=== PATIENT | male | born 2000 | race Caucasian/White ===

== ENCOUNTER 2023-04-07 18:02 | Inpatient (IN) | payer MEDICAID ==
[2023-04-07] VITALS (9 sets, daily range): BP systolic 68–140; BP diastolic 36–76; PULSE 103–112; RESP 18–24; TEMP 97–98.8; O2SAT 81–100
[~2023-04-07] VITALS: Ht 167.6 cm; Wt 84.8 kg
[2023-04-07] MEDS ORDERED: INTUBATION KIT MC ONE (18:07)
[2023-04-07] MEDS ORDERED: PROPOFOL 1000 MG/100 ML PREMIX 100 ML IV ONE ×2 (18:19→18:20)
[2023-04-07 18:39] LABS: BASOPHILS % (AUTO) 0.2 % (0.0-2.0); EOSINOPHILS % (AUTO) 0.2 % (0.0-4.0); HEMATOCRIT 46.5 % (36-52); HEMOGLOBIN 15.5 g/dL (12.0-18.0); LYMPHOCYTES # (AUTO) 1.4 K/uL (2.0-11.5); LYMPHOCYTES % (AUTO) 16.4 % (20.5-51.1); MEAN CORPUSCULAR HEMOGLOBIN 29 pg (27-31); MEAN CORPUSCULAR HGB CONC 33 g/dL (33-37); MEAN CORPUSCULAR VOLUME 87.2 fL (80-94); MONOCYTES # (AUTO) 0.6 K/uL (0.8-1.0); MONOCYTES % (AUTO) 7.3 % (1.7-9.3); NEUTROPHILS # (AUTO) 6.3 K/uL (1.8-7.7); NEUTROPHILS % (AUTO) 75.9 % (42.2-75.2); PLATELET COUNT (AUTO) 323 K/uL (140-450); RED BLOOD CELL COUNT(AUTO) 5.33 MIL/uL (4.20-6.10); RED CELL DISTRIBUTION WIDTH 14.7 % (11.6-13.7); WHITE BLOOD COUNT (AUTO) 8.2 K/uL (4.8-10.8)
[2023-04-07] MEDS ORDERED: ETOMIDATE 20 MG/10 ML VIAL IVP ONE (18:40)
[2023-04-07] MEDS ORDERED: ROCURONIUM 50 MG/5 ML VIAL IV ONE (18:40)
[2023-04-07 18:50] LABS: APPEARANCE,URINE CLEAR (CLEAR); BILIRUBIN,URINE NEGATIVE (NEGATIVE); BLOOD, URINE 2+ (NEGATIVE); COLOR,URINE YELLOW (YELLOW); LEUKOCYTE ESTERASE ,URINE NEGATIVE (NEGATIVE); NITRITE, URINE NEGATIVE (NEGATIVE); PH,URINE 5.5 (5.0-9.0); PROTEIN,URINE 2+ (NEGATIVE); UGLUCOSE 1+ (NEGATIVE); UROBILINOGEN,URINE 0.2 EU/dL (0.2 - 1)
[2023-04-07 19:00] LABS: INR 1.06 (0.8-1.2); PARTIAL THROMBOPLASTIN TIME 25.1 secs (22-35.6); PROTHROMBIN TIME 11.1 secs (10.8-13.4)
[2023-04-07 19:02] LABS: BACTERIA,URINE None Seen /HPF (None Seen); MUCUS,URINE 1+ /LPF (None Seen); RBC,URINE 0-5 /HPF (0-5); SQUAMOUS EPITHELIAL CELL,UR 4-10 (MOD) /LPF (0-3 (FEW)); TRICHOMONAS,URINE None Seen /HPF (None Seen); WBC,URINE 0-5 /HPF (0-5); YEAST,URINE None Seen /HPF (None Seen)
[2023-04-07] MEDS ORDERED: AMPICILLIN/SULBACTAM 3 GM in NACL 0.9% 100 ML IV ONE (19:10)
[2023-04-07] MEDS ORDERED: NACL 0.9% 3,000 ML IV ONE (19:10)
[2023-04-07] MEDS ORDERED: AMPICILLIN/SULBACTAM 3 GM VIAL ONE (19:12)
[2023-04-07 19:13] LABS: AMPHETAMINE, URINE NEGATIVE ng/ml (NEG <=1000); BARBITURATE, URINE NEGATIVE ng/ml (NEG <=200); BENZODIAZEPINE, URINE POSITIVE ng/mL (NEG <=200); CANNABINOID, URINE NEGATIVE ng/mL (NEG <=50); COCAINE, URINE POSITIVE ng/mL (NEG <=300); OPIATE, URINE NEGATIVE ng/mL (NEG <=2000); PHENCYCLIDINE SCREEN,URINE NEGATIVE ng/mL (NEG <=25)
[2023-04-07] MEDS ORDERED: MIDAZOLAM 5 MG/5 ML VIAL IV ONE (19:30)
[2023-04-07 19:34] LABS: ALANINE AMINOTRANSFERASE 82 U/L (12-78); ALBUMIN 3.6 g/dL (3.4-5.0); ALKALINE PHOSPHATASE 108 U/L (50-136); ASPARTATE AMINOTRANSFERASE 90 U/L (15-37); THYROID STIMULATING HORMONE 0.43 uIU/mL (0.34-3.74); TOTAL BILIRUBIN 0.5 mg/dL (0.0-1.0); TOTAL PROTEIN, SERUM 8.6 g/dL (6.4-8.2)
[2023-04-07 19:45] LABS: ANION GAP 17.4 (8-16); CALCIUM 8.5 mg/dL (8.5-10.1); POTASSIUM 5.4 mmol/L (3.5-5.1)
[2023-04-07 19:50] LABS: PHOSPHORUS 6.4 mg/dL (2.5-4.9)
[2023-04-07 19:50] LABS: ACETAMINOPHEN < 0.5 ug/ml (10-30); ALCOHOL, BLOOD < 3 mg/dL (<10); LACTIC ACID 8.7 mmol/L (0.4-2.0); SALICYLATE < 2.8 mg/dL (2.8-20.0)
[2023-04-07] MEDS ORDERED: ONDANSETRON 4 MG/2 ML VIAL IVP PRN (21:10)
[2023-04-07] MEDS ORDERED: PIPERACILLIN/TAZOBACTAM 3.375 GM in DEXTROSE 5% 50 ML IV ONE (21:10)
[2023-04-07] MEDS ORDERED: VANCOMYCIN PER PHARMACY MC PRN (21:10)
[2023-04-07] MEDS ORDERED: LORazepam 2 MG/ML VIAL IVP PRN (21:10)
[2023-04-07 21:24] LABS: BLOOD GAS BASE EXCESS -11.6 mmol/L (-2.0-2.0); BLOOD GAS HCO3 16.2 mmol/L (22-26); BLOOD GAS PCO2 43.4 mmHg (35-45); BLOOD GAS PH 7.189 (7.35-7.45)
[2023-04-07 21:25] LABS: BLOOD GAS O2 SAT% 94.2 % (92.0-98.5)
[2023-04-07] MEDS ORDERED: ACETAMINOPHEN 650 MG/20.3 ML UDC PO PRN (21:25)
[2023-04-07] MEDS ORDERED: hydrALAZINE 20 MG/ML VIAL IVP PRN (21:30)
[2023-04-07] MEDS: NACL 0.9% 1,000 ML IV SCH ×2 (21:36→22:22)
[2023-04-07] MEDS ORDERED: fentaNYL citrate 0.05 MG/ML VIAL ONE ×2 (22:30→22:33)
[2023-04-07] MEDS ORDERED: DEXMEDETOMIDINE HCL 100 MCG/ML 2 ML VIAL IV ONE (22:37)
[2023-04-07] MEDS: DEXMEDETOMIDINE HCL 400 MCG in NACL 0.9% 96 ML IV PRN (22:39)
[2023-04-07] MEDS: fentaNYL citrate 1 MG in NACL 0.9% 80 ML IV PRN (22:39)
[2023-04-07] MEDS ORDERED: ALBUMIN HUMAN 25% 50 ML IV ONE ×3 (23:10→23:35)
[2023-04-07] MEDS ORDERED: NOREPINEPHRINE 4 MG/4 ML VIAL IV ONE (23:22)
[2023-04-07 23:31] LABS: LACTIC ACID 5.6 mmol/L (0.4-2.0)
[2023-04-08] VITALS (48 sets, daily range): BP systolic 44–188; BP diastolic 23–118; PULSE 61–122; RESP 18–29; TEMP 96–101; O2SAT 90–100
[2023-04-08] MEDS ORDERED: NOREPINEPHRINE 4 MG/4 ML VIAL IV ONE ×7 (02:29→14:37)
[2023-04-08] MEDS: NOREPINEPHRINE 4 MG in DEXTROSE 5% 250 ML IV PRN ×9 (03:38→14:43)
[2023-04-08] MEDS ORDERED: DEXMEDETOMIDINE HCL 100 MCG/ML 2 ML VIAL IV ONE ×3 (05:11→13:08)
[2023-04-08] MEDS: DEXMEDETOMIDINE HCL 400 MCG in NACL 0.9% 96 ML IV PRN ×5 (05:21→22:15)
[2023-04-08] MEDS ORDERED: PIPERACILLIN/TAZOBACTAM 3.375 GM VIAL IV ONE (05:25)
[2023-04-08] MEDS: PIPERACILLIN/TAZOBACTAM 3.375 GM in DEXTROSE 5% 50 ML IV SCH ×3 (05:40→20:35)
[2023-04-08 05:42] LABS: BASOPHILS % (AUTO) 0.2 % (0.0-2.0); EOSINOPHILS % (AUTO) 0.2 % (0.0-4.0); HEMATOCRIT 40.3 % (36-52); HEMOGLOBIN 13.6 g/dL (12.0-18.0); LYMPHOCYTES # (AUTO) 1.8 K/uL (2.0-11.5); LYMPHOCYTES % (AUTO) 17.4 % (20.5-51.1); MEAN CORPUSCULAR HEMOGLOBIN 29 pg (27-31); MEAN CORPUSCULAR HGB CONC 34 g/dL (33-37); MEAN CORPUSCULAR VOLUME 85.6 fL (80-94); MONOCYTES # (AUTO) 0.5 K/uL (0.8-1.0); MONOCYTES % (AUTO) 5.4 % (1.7-9.3); NEUTROPHILS # (AUTO) 7.7 K/uL (1.8-7.7); NEUTROPHILS % (AUTO) 76.8 % (42.2-75.2); PLATELET COUNT (AUTO) 255 K/uL (140-450); RED BLOOD CELL COUNT(AUTO) 4.71 MIL/uL (4.20-6.10); RED CELL DISTRIBUTION WIDTH 14.7 % (11.6-13.7); WHITE BLOOD COUNT (AUTO) 10.1 K/uL (4.8-10.8)
[2023-04-08] MEDS: NACL 0.9% 1,000 ML IV SCH (05:50)
[2023-04-08] MEDS ORDERED: PANTOPRAZOLE 40 MG INJ VIAL ONE ×2 (05:57→06:09)
[2023-04-08 06:49] LABS: ANION GAP 14.4 (8-16); CALCIUM 8.2 mg/dL (8.5-10.1); CARBON DIOXIDE 23.4 mmol/L (21-32); POTASSIUM 3.8 mmol/L (3.5-5.1)
[2023-04-08] MEDS ORDERED: fentaNYL citrate 0.05 MG/ML VIAL ONE ×2 (08:04→08:45)
[2023-04-08] MEDS: fentaNYL citrate 1 MG in NACL 0.9% 80 ML IV PRN ×2 (09:33→18:31)
[2023-04-08 10:28] LABS: BLOOD GAS PCO2 36.2 mmHg (35-45); BLOOD GAS PH 7.364 (7.35-7.45)
[2023-04-08 10:29] LABS: BLOOD GAS BASE EXCESS -4.5 mmol/L (-2.0-2.0); BLOOD GAS HCO3 20.2 mmol/L (22-26); BLOOD GAS PO2 121.7 mmHg (75-100)
[2023-04-08 10:30] LABS: BLOOD GAS O2 SAT% 98.5 % (92.0-98.5)
[2023-04-08] MEDS ORDERED: MULTIVITAMIN-12 10 ML, FOLIC ACID 1 MG in NACL 0.9% 1,000 ML IV SCH (10:35)
[2023-04-08] MEDS ORDERED: VANCOMYCIN 1,500 MG in DEXTROSE 5% 500 ML IV SCH (11:00)
[2023-04-08] MEDS ORDERED: COMMUNICATION ORDER MC SCH (12:00)
[2023-04-08] MEDS: ALBUTEROL SULFATE/IPRATROPIU 3 ML SOL IH SCH ×3 (13:12→19:53)
[2023-04-08] MEDS ORDERED: HEPARIN PER PHARMACY MC PRN (14:30)
[2023-04-08] MEDS ORDERED: NOREPINEPHRINE 16 MG in DEXTROSE 5% 250 ML IV PRN (14:55)
[2023-04-08] MEDS ORDERED: hePARIN / DEXT 5% PREMIX 250 ML IV SCH (15:30)
[2023-04-08 17:20] LABS: INR 1.66 (0.8-1.2); PARTIAL THROMBOPLASTIN TIME 30.7 secs (22-35.6)
[2023-04-08] MEDS ORDERED: AZITHROMYCIN 500 MG in DEXTROSE 5% 250 ML IV SCH (17:25)
[2023-04-08 20:44] LABS: FLU A ANTIGEN negative (NEGATIVE); FLU B ANTIGEN NEGATIVE (NEGATIVE)
[2023-04-08] MEDS: hePARIN / DEXT 5% PREMIX 250 ML IV SCH (21:01)
[2023-04-09] VITALS (31 sets, daily range): BP systolic 117–171; BP diastolic 47–97; PULSE 51–103; RESP 17–34; TEMP 96.7–98.1; O2SAT 97–100
[2023-04-09] MEDS: ALBUTEROL SULFATE/IPRATROPIU 3 ML SOL IH SCH ×4 (00:19→19:48)
[2023-04-09] MEDS ORDERED: AZITHROMYCIN 500 MG INJ VIAL IV ONE (01:06)
[2023-04-09] MEDS ORDERED: DEXMEDETOMIDINE HCL 100 MCG/ML 2 ML VIAL IV ONE ×2 (03:00→07:13)
[2023-04-09 03:08] LABS: BASOPHILS % (AUTO) 0.3 % (0.0-2.0); EOSINOPHILS # (AUTO) 0.3 K/uL (0-0.4); HEMATOCRIT 35.2 % (36-52); HEMOGLOBIN 12.1 g/dL (12.0-18.0); LYMPHOCYTES # (AUTO) 2.1 K/uL (2.0-11.5); LYMPHOCYTES % (AUTO) 14.3 % (20.5-51.1); MEAN CORPUSCULAR HEMOGLOBIN 29 pg (27-31); MEAN CORPUSCULAR HGB CONC 34 g/dL (33-37); MEAN CORPUSCULAR VOLUME 84.1 fL (80-94); MONOCYTES # (AUTO) 0.5 K/uL (0.8-1.0); MONOCYTES % (AUTO) 3.6 % (1.7-9.3); NEUTROPHILS # (AUTO) 11.9 K/uL (1.8-7.7); NEUTROPHILS % (AUTO) 79.8 % (42.2-75.2); PLATELET COUNT (AUTO) 204 K/uL (140-450); RED BLOOD CELL COUNT(AUTO) 4.19 MIL/uL (4.20-6.10); RED CELL DISTRIBUTION WIDTH 14.7 % (11.6-13.7)
[2023-04-09] MEDS: DEXMEDETOMIDINE HCL 400 MCG in NACL 0.9% 96 ML IV PRN ×4 (03:14→17:16)
[2023-04-09 03:22] LABS: INR 1.51 (0.8-1.2); PROTHROMBIN TIME 15.5 secs (10.8-13.4)
[2023-04-09 03:32] LABS: ANION GAP 10.3 (8-16); CALCIUM 8.2 mg/dL (8.5-10.1); CARBON DIOXIDE 28.1 mmol/L (21-32); CREATININE 0.8 mg/dL (0.6-1.3); POTASSIUM 3.4 mmol/L (3.5-5.1)
[2023-04-09] MEDS: PIPERACILLIN/TAZOBACTAM 3.375 GM in DEXTROSE 5% 50 ML IV SCH ×3 (05:37→20:58)
[2023-04-09] MEDS: fentaNYL citrate 1 MG in NACL 0.9% 80 ML IV PRN (06:05)
[2023-04-09] MEDS: NACL 0.9% 1,000 ML IV SCH ×3 (07:20→17:13)
[2023-04-09] MEDS ORDERED: POTASSIUM CHLORIDE 10 MEQ TABER PO ONE (09:00)
[2023-04-09] MEDS ORDERED: POTASSIUM CHLORIDE 10 MEQ TABER PO SCH (10:15)
[2023-04-09] MEDS: LINEZOLID 600MG PREMIX 300 ML IV SCH ×2 (10:18→20:59)
[2023-04-09 10:26] LABS: INR 1.24 (0.8-1.2); PARTIAL THROMBOPLASTIN TIME 46.5 secs (22-35.6); PROTHROMBIN TIME 12.9 secs (10.8-13.4)
[2023-04-09 17:08] LABS: INR 1.12 (0.8-1.2); PARTIAL THROMBOPLASTIN TIME 40.1 secs (22-35.6); PROTHROMBIN TIME 11.7 secs (10.8-13.4)
[2023-04-09] MEDS: hePARIN / DEXT 5% PREMIX 250 ML IV SCH (17:38)
[2023-04-09 23:21] LABS: INR 1.16 (0.8-1.2); PARTIAL THROMBOPLASTIN TIME 44.6 secs (22-35.6); PROTHROMBIN TIME 12.1 secs (10.8-13.4)
[2023-04-10] VITALS (13 sets, daily range): BP systolic 100–148; BP diastolic 50–87; PULSE 68–108; RESP 16–30; TEMP 98.2–98.5; O2SAT 94–100
[2023-04-10] MEDS ORDERED: ZOLPIDEM 5 MG TAB ONE (00:59)
[2023-04-10] MEDS ORDERED: AZITHROMYCIN 500 MG in DEXTROSE 5% 250 ML IV SCH (01:00)
[2023-04-10] MEDS: ZOLPIDEM 5 MG TAB PO SCH ×2 (01:01→20:10)
[2023-04-10] MEDS: ALBUTEROL SULFATE/IPRATROPIU 3 ML SOL IH SCH ×4 (01:21→20:40)
[2023-04-10] MEDS: NACL 0.9% 1,000 ML IV SCH ×2 (01:29→05:20)
[2023-04-10] MEDS: PIPERACILLIN/TAZOBACTAM 3.375 GM in DEXTROSE 5% 50 ML IV SCH ×3 (05:16→20:10)
[2023-04-10 07:14] LABS: BASOPHILS # (AUTO) 0.1 K/uL (0.00-0.22); BASOPHILS % (AUTO) 0.5 % (0.0-2.0); EOSINOPHILS # (AUTO) 0.1 K/uL (0-0.4); HEMATOCRIT 32.7 % (36-52); HEMOGLOBIN 11.4 g/dL (12.0-18.0); LYMPHOCYTES # (AUTO) 1.6 K/uL (2.0-11.5); LYMPHOCYTES % (AUTO) 12.2 % (20.5-51.1); MEAN CORPUSCULAR HEMOGLOBIN 29 pg (27-31); MEAN CORPUSCULAR HGB CONC 35 g/dL (33-37); MONOCYTES # (AUTO) 0.5 K/uL (0.8-1.0); NEUTROPHILS # (AUTO) 10.7 K/uL (1.8-7.7); NEUTROPHILS % (AUTO) 82.3 % (42.2-75.2); PLATELET COUNT (AUTO) 186 K/uL (140-450); RED BLOOD CELL COUNT(AUTO) 3.94 MIL/uL (4.20-6.10); RED CELL DISTRIBUTION WIDTH 14.4 % (11.6-13.7)
[2023-04-10 07:54] LABS: ANION GAP 12.8 (8-16); CALCIUM 8.3 mg/dL (8.5-10.1); CREATININE 0.7 mg/dL (0.6-1.3)
[2023-04-10 07:57] LABS: POTASSIUM 2.8 mmol/L (3.5-5.1)
[2023-04-10] MEDS: LINEZOLID 600MG PREMIX 300 ML IV SCH ×2 (08:40→21:38)
[2023-04-10] MEDS ORDERED: KCL 20 MEQ IN 100 mL PREMIX 200 ML IV SCH (09:00)
[2023-04-10 09:32] LABS: INR 1.11 (0.8-1.2); PROTHROMBIN TIME 11.6 secs (10.8-13.4)
[2023-04-10 09:36] LABS: PARTIAL THROMBOPLASTIN TIME 53.1 secs (22-35.6)
[2023-04-10] MEDS: hePARIN / DEXT 5% PREMIX 250 ML IV SCH (11:38)
[2023-04-11] VITALS (9 sets, daily range): BP systolic 138–148; BP diastolic 61–87; PULSE 57–94; RESP 16–22; TEMP 96.6–98.8; O2SAT 95–100
[2023-04-11] MEDS: ALBUTEROL SULFATE/IPRATROPIU 3 ML SOL IH SCH ×4 (01:00→19:22)
[2023-04-11] MEDS: PIPERACILLIN/TAZOBACTAM 3.375 GM in DEXTROSE 5% 50 ML IV SCH ×3 (05:34→21:17)
[2023-04-11 06:07] LABS: HIV 1/0/2 ABS, QUAL Non Reactive (Non Reactive)
[2023-04-11] MEDS: LINEZOLID 600MG PREMIX 300 ML IV SCH ×2 (08:02→21:18)
[2023-04-11] MEDS: hePARIN / DEXT 5% PREMIX 250 ML IV SCH (08:13)
[2023-04-11] MEDS: ZOLPIDEM 5 MG TAB PO SCH (21:16)
[2023-04-11] MEDS: CLOPIDOGREL 75 MG TAB PO SCH (21:16)
[2023-04-12] MEDS: ALBUTEROL SULFATE/IPRATROPIU 3 ML SOL IH SCH ×2 (00:23→08:21)
[2023-04-12 04:00] VITALS: BP 138/58; PULSE 68; RESP 16; TEMP 98.6; O2SAT 96
[2023-04-12] MEDS: PIPERACILLIN/TAZOBACTAM 3.375 GM in DEXTROSE 5% 50 ML IV SCH ×2 (05:00→12:10)
[2023-04-12 06:43] LABS: BASOPHILS % (AUTO) 0.3 % (0.0-2.0); EOSINOPHILS # (AUTO) 0.3 K/uL (0-0.4); EOSINOPHILS % (AUTO) 2.8 % (0.0-4.0); HEMATOCRIT 37.7 % (36-52); LYMPHOCYTES # (AUTO) 1.9 K/uL (2.0-11.5); LYMPHOCYTES % (AUTO) 20.5 % (20.5-51.1); MEAN CORPUSCULAR HEMOGLOBIN 29 pg (27-31); MEAN CORPUSCULAR HGB CONC 35 g/dL (33-37); MEAN CORPUSCULAR VOLUME 84.6 fL (80-94); MONOCYTES % (AUTO) 10.4 % (1.7-9.3); NEUTROPHILS # (AUTO) 6.1 K/uL (1.8-7.7); PLATELET COUNT (AUTO) 286 K/uL (140-450); RED BLOOD CELL COUNT(AUTO) 4.46 MIL/uL (4.20-6.10); WHITE BLOOD COUNT (AUTO) 9.3 K/uL (4.8-10.8)
[2023-04-12 06:58] LABS: ALBUMIN 2.6 g/dL (3.4-5.0); ANION GAP 14.5 (8-16); CALCIUM 8.7 mg/dL (8.5-10.1); CARBON DIOXIDE 23.5 mmol/L (21-32); CREATININE 0.8 mg/dL (0.6-1.3); TOTAL BILIRUBIN 0.3 mg/dL (0.0-1.0); TOTAL PROTEIN, SERUM 7.5 g/dL (6.4-8.2)
[2023-04-12] MEDS ORDERED: KCL 20 MEQ IN 100 mL PREMIX 200 ML IV SCH (08:15)
[2023-04-12] MEDS: LINEZOLID 600MG PREMIX 300 ML IV SCH (08:40)
[2023-04-12] MEDS: CLOPIDOGREL 75 MG TAB PO SCH (08:40)
[2023-04-12 09:11] VITALS: BP 115/64; PULSE 67; RESP 17; TEMP 98.3; O2SAT 96
[2023-04-12 09:12] VITALS: RESP 17; TEMP 98.3; O2SAT 100
[2023-04-12 09:13] VITALS: PULSE 67; RESP 17; O2SAT 100
[2023-04-12 10:53] VITALS: BP 115/64; PULSE 67; RESP 17; TEMP 98.3
[2023-04-12] MEDS ORDERED: CLOP75TA55 PO (14:53)
[2023-04-12] MEDS ORDERED: AMOX-999 PO (14:54)
== END 2023-04-12 15:25 | disposition home or self-care (01) | DRG 720 ==
LOC: MED 18:02 → MIC 21:10 → MTU 04-10 18:00
PROVIDERS: ADMIT Family Medicine; ATTEND Family Medicine
PROC: 5A1945Z Respiratory Ventilation, 24-96 Consecutive Hours (ICD-10-PCS; principal; 2023-04-07)
PROC: 0BH17EZ Insertion of Endotracheal Airway into Trachea, Via Natural or Artificial Opening (ICD-10-PCS; 2023-04-07)
PROC: 02H633Z Insertion of Infusion Device into Right Atrium, Percutaneous Approach (ICD-10-PCS; 2023-04-08)
PROC: B548ZZA Ultrasonography of Superior Vena Cava, Guidance (ICD-10-PCS; 2023-04-08)
DX: A41.9 Sepsis, unspecified organism (principal); J96.01 Acute respiratory failure with hypoxia; J69.0 Pneumonitis due to inhalation of food and vomit; N17.0 Acute kidney failure with tubular necrosis; T40.5X1A Poisoning by cocaine, accidental (unintentional), initial encounter; T42.4X1A Poisoning by benzodiazepines, accidental (unintentional), initial encounter; R65.21 Severe sepsis with septic shock; E87.6 Hypokalemia; I21.4 Non-ST elevation (NSTEMI) myocardial infarction; Y92.89 Other specified places as the place of occurrence of the external cause; Z22.322 Carrier or suspected carrier of Methicillin resistant Staphylococcus aureus
CPT/HCPCS: 31500; 36415; 36600; 70450; 71045; 80048; 80053; 80076; 80305; 81001; 82140; 82803; 82948; 83605; 83735; 84100; 84443; 84484; 85025; 85610; 85730; 86702; 87040; 87070; 87081; 87205; 87449; 89220; 92526; 93005; 94003; 94640; 96374; 99291; 99292; A9153; C9113; G0480; G0482; J0295; J0456; J1644; J2020; J2250; J2543; J2704; J3010; J3370; J3480; J3490; J7030; J7060; P9046; Q0092